=== PATIENT | female | born 1995 | race African-American/Black ===

== ENCOUNTER 2020-10-07 13:31 | Emergency (ER) | payer OTHER, SELFPAY ==
--- NOTE | ~2020-10-07 | XR_ITS ---
EXAMINATION: XR chest 1V portable INDICATION: Shortness of breath and cough TECHNIQUE: Portable AP chest at 1355 hours COMPARISON: None available FINDINGS: The lungs are free of acute opacities. There is no pleural effusion or pneumothorax. The ca rdiomediastinal silhouette is normal. The visualized bones and soft tissues are unremarkable. IMPRESSION: 1. No acute cardiopulmonary abnormality. Reviewed, dictated and finalized at location A.
[2020-10-07 13:36] VITALS: BP 103/64; PULSE 74; RESP 20; TEMP 36.3; O2SAT 100
--- NOTE | 2020-10-07 14:24 | ED.GENADULT ---
HPI - General Adult General Chief complaint: Upper Respiratory Infection Stated complaint: congestion/poor smell Time Seen by Provider: 10/07/20 13:45 Source: patient, family and RN notes reviewed Mode of arrival: ambulatory Limitations: no limitations History of Present Illness HPI narrative: Patient is a 25-year-old female who presents to emergency department for evaluation of upper respiratory symptoms for the last 4-day congestion rhinorrhea nonproductive cough sore throat inability to smell or taste also being seen with a family member with similar symptoms was not vaccinated for COVID-19 denies vomiting or diarrhea Related Data Allergies Allergy/AdvReac Type Severity Reaction Status Date / Time No Known Allergies Allergy Verified 10/07/20 13:40 Review of Systems Review of Systems: All systems reviewed & are unremarkable except as noted in HPI and below PMFSH Social History Social History (Updated 10/07/20 @ 14:25 by Avtar Corcoran PA-C) Tobacco type: e-cigarettes/vaping Gender identity (if verbalized by the patient): Female Exam Narrative: Exam Narrative: GENERAL: Well-appearing, well-nourished, and in no acute distress. HEAD: Normocephalic, atraumatic. EYES: PERRLA and EOMI. ENT: Nares clear, no rhinorrhea or epistaxis. Mucous membranes moist. CHEST: Clear to auscultation. No respiratory distress. No wheezes rales or rhonchi HEART: Regular rate and rhythm. No murmur heard. Normal peripheral pulses. EXTREMITIES: Normal range of motion. No edema. SKIN: Warm, dry, no rash. NEURO: No focal deficits. Alert and oriented x3. PSYCH: Normal mood and affect. Course Course Emergency Course: Patient evaluated for COVID-19 will be discharged with medications for her symptoms primary care for follow-up provided with reasons to return ABCs and vital signs intact and stable. Patient is afebrile nontoxic-appearing no distress and felt appropriate for outpatient reevaluation. Patient aware of following with primary care to obtain COVID-19 results also has been advised to purchase a home oximeter to follow her oxygenation Vital Signs Vital signs: Vital Signs Temperature 97.4 F L 10/07/20 13:36 Pulse Rate 74 10/07/20 13:36 Respiratory Rate 20 10/07/20 13:36 Blood Pressure 103/64 10/07/20 13:36 Pulse Oximetry 100 10/07/20 13:36 Temperature 97.4 F L 10/07/20 13:36 Pulse Rate 74 10/07/20 13:36 Respiratory Rate 20 10/07/20 13:36 Blood Pressure 103/64 10/07/20 13:36 Pulse Oximetry 100 10/07/20 13:36 Medical Decision Making MDM Narrative Medical decision making narrative: Patient with upper respiratory symptoms afebrile nontoxic-appearing no distress no pneumonia no hypoxemia felt appropriate for outpatient reevaluation Vital Signs Vital Signs: Vital Signs Temperature 97.4 F L 10/07/20 13:36 Pulse Rate 74 10/07/20 13:36 Respiratory Rate 20 10/07/20 13:36 Blood Pressure 103/64 10/07/20 13:36 Pulse Oximetry 100 10/07/20 13:36 Temperature 97.4 F L 10/07/20 13:36 Pulse Rate 74 10/07/20 13:36 Respiratory Rate 20 10/07/20 13:36 Blood Pressure 103/64 10/07/20 13:36 Pulse Oximetry 100 10/07/20 13:36 Imaging Data Radiologist's impression: ITS Impressions Chest X-Ray 10/07/20 14:18 IMPRESSION: 1. No acute cardiopulmonary abnormality. Discharge Plan Discharge Clinical Impression: Upper respiratory infection Patient Disposition: Home, Self-Care Condition: Stable Instructions: Antibiotic Form, COVID-19 (Coronavirus Disease 2019) (ED) Additional Instructions: Follow up with your primary care provider within 1-2 days to set up for reevaluation and to obtain your COVID-19 results. Go to ER for shortness of breath, difficulty breathing, chest pain, fever/chills, weakness, nauseau/vomitting, etc. or any other concerns. Stay well-hydrated Take any prescribed medications as directed. Purchase home oximeter to follow y
[2020-10-09 07:48] LABS: SARS-CoV-2 RNA PCR Positive
== END 2020-10-07 14:45 | disposition home or self-care (01) ==
PROVIDERS: Emergency Medicine Emergency Medical Services; Emergency Provider Emergency Medicine
DX: U07.1 COVID-19 (principal); J06.9 Acute upper respiratory infection, unspecified; F17.290 Nicotine dependence, other tobacco product, uncomplicated
CPT/HCPCS: 71045; 99283; C9803; U0003; U0005

== ENCOUNTER 2021-04-06 13:02 | Emergency (ER) | payer OTHER, SELFPAY ==
--- NOTE | ~2021-04-06 | XR_ITS ---
EXAMINATION: XR chest 1V portable EXAM DATE: 04/06/2021 15:26 INDICATION: Cough. TECHNIQUE: Portable AP frontal chest x-ray was obtained. Comparison is made to prior examination from 02/07/2021. FINDINGS: The lungs are clear. There are no pleural effusions. The cardiomediastinal silhouette is within normal limits. There is no pneumothorax suspected. The bones and soft tissues are unremarkab le. IMPRESSION: No acute cardiopulmonary findings. Reviewed, dictated and finalized at location G. NG ASSOCIATE
[2021-04-06 13:30] VITALS: BP 113/59; PULSE 90; RESP 16; TEMP 36.8; O2SAT 100
[2021-04-06 14:57] VITALS: BP 103/60; PULSE 62; RESP 18; TEMP 37; O2SAT 97
--- NOTE | 2021-04-06 15:44 | ECG_ITS ---
Measurements Intervals [place] Rate: 62 P: 69 RI: 160 QRS: 64 QRSD: 83 T: 54 QT: 378 QTc: 386 Interpretive Statements SINUS RHYTHM POSSIBLE LEFT ATRIAL ENLARGEMENT BASELINE ARTIFACT- I, III, AVL BORDERLINE ECG Electronically Signed On 04-06-2021 17:34:17 [employer]RE BRIDGE OPERATOR by Jake London D.O.
[2021-04-06 16:06] LABS: Basophils Absolute Auto 0.1 K/mm3 (0.0-0.1); Basophils Percent Auto 1.6 % (0.2-1.2); Eosinophils Percent Auto 0.6 % (0-4.4); Hematocrit 32.9 % (37.0-47.0); Hemoglobin 10.6 g/dL (12.0-15.0); Immature Granulocyte Absolute 0.01 K/mm3 (0.00-0.031); Immature Granulocyte Percent A 0.2 % (0-0.5); Lymphocytes Percent Auto 43.8 % (18.3-44.2); Mean Corpuscular HGB Conc 32.2 g/dl (32-36); Mean Corpuscular Volume 80.6 fl (80-100); Mean Platelet Volume 8.9 fl (7.4-10.4); Monocytes Absolute Auto 0.5 K/mm3 (0.1-0.6); Neutrophils Absolute Auto 2.3 K/mm3 (1.3-6.7); Neutrophils Percent Auto 44.8 % (45.5-73.1); Platelet Count Result 405 k/mm3 (150-375); Red Blood Count 4.08 M/mm3 (4.2-5.4); Red Cell Distribution Width 14.4 % (11.5-14.5)
[2021-04-06 16:16] LABS: Anion Gap 11 mmol/L (8-16); Blood Urea Nitrogen 12 mg/dL (7-17); Carbon Dioxide 23 mmol/L (22-30); Chloride 104 mmol/L (98-107); Estimated CRCL calculation 88 ml/min; Estimated Glomerular Filt Rate > 60; Glucose 91 mg/dL (65-110); Potassium 4.2 mmol/L (3.4-5.0); Sodium 138 mmol/L (137-145)
[2021-04-06 16:24] LABS: INR 1.1; Prothrombin Time 14.4 Seconds (11.1-14.7)
[2021-04-06 16:25] LABS: Partial Thromboplastin Time 35.1 SECONDS (22.3-36.8)
[2021-04-06 16:27] LABS: D Dimer 0.33 ug/mL (<0.48)
[2021-04-06 16:28] LABS: Troponin I < 0.012 ng/mL (0.000-0.034)
--- NOTE | 2021-04-06 16:37 | ED.URI ---
HPI - URI/Sore Throat General Chief Complaint: Upper Respiratory Infection <Karuna Paez PA-C - Last Filed: 04/06/21 17:13> Stated Complaint: bronchitis <LIGIA Perales Last Filed: 04/06/21 17:13> Time Seen by Provider: 04/06/21 15:09 <LIGIA Perales Last Filed: 04/06/21 17:13> Source: patient <LIGIA Perales Last Filed: 04/06/21 17:13> Mode of arrival: ambulatory <LIGIA Perales Last Filed: 04/06/21 17:13> Limitations: no limitations <LIGIA Perales Last Filed: 04/06/21 17:13> History of Present Illness HPI Narrative: This is a 25 year old female that presents to the ER for cold symptoms present over the last couple of days. Reports cough, congestion, and sore throat. Reports shortness of breath and chest pain. Reports she was seen by her primary and started on an antibiotic and an inhaler. She was prompted to present to the ER for her chest pain. She is not COVID or flu vaccinated. She has not taken anything for her pain. Denies fever or lower extremity edema. <Karuna Paez PA-C - Last Filed: 04/06/21 17:13> Related Data Allergies/Adverse Reactions: Allergies Allergy/AdvReac Type Severity Reaction Status Date / Time No Known Allergies Allergy Verified 10/07/20 13:40 <LIGIA Perales Last Filed: 04/06/21 17:13> Review of Systems Review of Systems: CONSTITUTIONAL: Denies fever ENT: Reports congestion, sore throat CARDIOVASCULAR: Reports chest pain. Denies edema. RESPIRATORY: Reports cough and dyspnea. <LIGIA Perales Last Filed: 04/06/21 17:13> All systems reviewed & are unremarkable except as noted in HPI and below <LIGIA Perales Last Filed: 04/06/21 17:13> [facility] Past Medical History Medical History: Medical History (Updated 04/06/21 @ 16:57 by Karuna Paez PA-C) No active medical problems <Karuna Paez PA-C - Last Filed: 04/06/21 17:13> Social History Social History: Social History (Updated 10/07/20 @ 14:25 by Avtar Corcoran PA-C) Tobacco type: e-cigarettes/vaping Gender identity (if verbalized by the patient): Female <Karuna Paez PA-C - Last Filed: 04/06/21 17:13> Exam Narrative: GENERAL: Well-appearing, well-nourished, and in no acute distress. HEAD: Normocephalic, atraumatic. EYES: EOMI. ENT: Nares clear, no rhinorrhea or epistaxis. Mucous membranes moist. Oropharynx without tonsillar hypertrophy exudate or other lesions. Bilateral TMs pearly narvaez non-bulging NECK: Supple. No adenopathy or masses. CHEST: Clear to auscultation. No respiratory distress. No wheezes rales or rhonchi HEART: Regular rate and rhythm. No murmur heard. Normal peripheral pulses. EXTREMITIES: Normal range of motion. No edema. SKIN: Warm, dry, no rash. NEURO: No focal deficits. Alert and oriented x3. PSYCH: Normal mood and affect <Karuna Paez PA-C - Last Filed: 04/06/21 17:13> Course SALESPERSON BOOKS/PA Physician Supervision For this patient encounter, I reviewed the SALESPERSON BOOKS or PA documentation, treatment plan, and medical decision making <Adriel Mclain MD - Last Filed: 04/06/21 23:25> Vital Signs Vital signs: Vital Signs Temperature 98.3 F 04/06/21 13:30 Pulse Rate 90 04/06/21 13:30 Respiratory Rate 16 04/06/21 13:30 Blood Pressure 113/59 L 04/06/21 13:30 Pulse Oximetry 100 04/06/21 13:30 Temperature 98.6 F 04/06/21 14:57 Pulse Rate 80 04/06/21 18:06 Respiratory Rate 17 04/06/21 18:06 Blood Pressure 132/84 04/06/21 18:06 Pulse Oximetry 99 04/06/21 18:06 <Karuna Paez PA-C - Last Filed: 04/06/21 17:13> Vital Signs Temperature 98.3 F 04/06/21 13:30 Pulse Rate 90 04/06/21 13:30 Respiratory Rate 16 04/06/21 13:30 Blood Pressure 113/59 L 04/06/21 13:30 Pulse Oximetry 100 04/06/21 13:30 Temperature 98.6 F 04/06/21 14:57 Pulse Rate 80 04/06/21 18:06 Respiratory Rate 17 04/06/21 18:0
[2021-04-06 16:47] LABS: SARS-CoV-2 RNA PCR Negative
[2021-04-06] MEDS: KETOROLAC 30 MG/ML VIAL (*BKC) IV PUSH (17:10)
[2021-04-06 18:06] VITALS: BP 132/84; PULSE 80; RESP 17; O2SAT 99
== END 2021-04-06 18:07 | disposition home or self-care (01) ==
PROVIDERS: Physician Assistant; Emergency Provider Emergency Medicine
DX: J06.9 Acute upper respiratory infection, unspecified (principal); Z20.822 Contact with and (suspected) exposure to COVID-19; F17.290 Nicotine dependence, other tobacco product, uncomplicated
CPT/HCPCS: 36415; 71045; 80048; 84484; 85025; 85380; 85610; 85730; 87804; 93005; 96374; 99284; C9803; J1885; U0003; U0005

== ENCOUNTER 2022-04-14 15:11 | Emergency (ER) | payer OTHER, SELFPAY ==
--- NOTE | ~2022-04-14 | CT_ITS ---
Non-contrast CT scan of the Abdomen and Pelvis Clinical indication: Left flank pain Technique: 5 mm axial scans were obtained through the abdomen and pelvis without intravenous or oral contrast. Dose reduction technique was used on this scan by utilizing automated exposure control and iterative reconstruction technique. The dose-length product (DLP) was 174.42 mGy-cm. Findings: Images through the lung bases reveal no abnormalities. There is no evidence of renal or ureteral calculi. The kidneys and the ureters are nondilated. The liver, spleen, pancreas, gallbladder, and adrenals appear normal. There is no aortic aneurysm. There is no evidence of bowel obstruction. No evidence to suggest appendicitis. Images through the pelvis were performed. There is no evidence of ascites or lymphadenopathy. Urinary bladder unremarkable. No adnexal mass evident. Impression: No significant abnormality seen. Reviewed, dictated and finalized at [facility]. ICAL NURSING INTERN Impression: No significant abnormality seen.
--- NOTE | ~2022-04-14 | US_ITS ---
EXAMINATION: US pelvic complete w TV DATE: 04/14/2022 16:50 INDICATION: Left pelvic pain. TECHNIQUE: Multiple transabdominal and transvaginal sonographic images of the pelvis were obtained. COMPARISON: None. FINDINGS: TRANSABDOMINAL ULTRASOUND: The uterus measures 7.2 x 3.8 x 4.7 cm. There is physiologic free fluid in the pelvis. TRANSVAGINAL ULTRASOUND: The endometrial complex measures 8 mm in thickness. The right ovary measures 2.7 x 1.5 x 2.0 cm. The left ovary measures 1.9 x 0.8 cm. There is normal vascular flow in the ovaries. IMPRESSION: 1. Normal pelvis. Reviewed, dictated and finalized at location A. TS ASSISTANT IMPRESSION: 1. Normal pelvis.
[2022-04-14 15:39] VITALS: BP 117/63; PULSE 84; RESP 14; TEMP 36.9; O2SAT 100
[2022-04-14 21:13] VITALS: BP 137/66; PULSE 99; RESP 18; O2SAT 100
--- NOTE | 2022-04-14 23:39 | ED.ABDPAIN ---
HPI - Abdominal Pain General Chief Complaint: Abdominal Pain <Alfie Hernandez MD - Last Filed: 04/15/22 00:02> Stated Complaint: ovary pain sent for ultrasound <Alfie Hernandez MD - Last Filed: 04/15/22 00:02> Time Seen by Provider: 04/14/22 22:11 <Alfie Hernandez MD - Last Filed: 04/15/22 00:02> History of Present Illness HPI narrative: This is a 26-year-old female who denies significant past medical history, referred to the emergency department from urgent care with concern for ovarian torsion. The patient states she has had 8/10 left flank pain and left lower quadrant pain for the past 2 weeks, worsening in the past day. Is intermittently associated with nausea but no vomiting. <Alfie Hernandez MD - Last Filed: 04/15/22 00:02> Related Data Allergies/Adverse Reactions: Allergies Allergy/AdvReac Type Severity Reaction Status Date / Time No Known Allergies Allergy Verified 10/07/20 13:40 <Alfie Hernandez MD - Last Filed: 04/15/22 00:02> Review of Systems Review of Systems: CONSTITUTIONAL: Denies fever, chills, or sweats. EYES: Denies visual changes, redness, or discharge. ENT: Denies rhinorrhea, congestion, sore throat, or otalgia. CARDIOVASCULAR: Denies chest pain, palpitations, or edema. RESPIRATORY: Denies cough or dyspnea. GASTROINTESTINAL: Left lower quadrant abdominal pain, left flank pain, nausea denies vomiting, or diarrhea. GENITOURINARY: Denies dysuria or hematuria. SKIN: Denies rash or itching. MUSCULOSKELETAL: Denies back pain, joint pain, or myalgia. NEUROLOGIC: Denies headache, numbness, dizziness, or weakness. PSYCHIATRIC: Denies anxiety or depression. <Alfie Hernandez MD - Last Filed: 04/15/22 00:02> [facility] Past Medical History Medical History: Medical History No active medical problems <Alfie Hernandez MD - Last Filed: 04/15/22 00:02> Social History Social History: Social History Tobacco type: e-cigarettes/vaping Gender identity (if verbalized by the patient): Female <Alfie Hernandez MD - Last Filed: 04/15/22 00:02> Exam Narrative: GENERAL: Well-developed, well-nourished, appears uncomfortable HEAD: Normocephalic, atraumatic. EYES: PERRLA and EOMI. CHEST: Clear to auscultation. No respiratory distress. No wheezes rales or rhonchi HEART: Regular rate and rhythm. No murmur heard. Normal peripheral pulses. ABDOMEN: Soft, tender to palpation in the LLQ without rebound, nondistended, normal active bowel sounds. Left CVA tenderness to palpation. EXTREMITIES: Normal range of motion. No edema. SKIN: Warm, dry, no rash. NEURO: No focal deficits. Alert and oriented x3. PSYCH: Normal mood and affect. <Alfie Hernandez MD - Last Filed: 04/15/22 00:02> Course Course Emergency Course: 00:00 - Patient signed out to overnight ED physician, Dr. Trent pending imaging and UA. <Alfie Hernandez MD - Last Filed: 04/15/22 00:02> Vital Signs Vital signs: Vital Signs Temperature 36.9 C 04/14/22 15:39 Pulse Rate 84 04/14/22 15:39 Respiratory Rate 14 04/14/22 15:39 Blood Pressure 117/63 04/14/22 15:39 Pulse Oximetry 100 04/14/22 15:39 Oxygen Delivery Room Air 04/14/22 15:39 Temperature 36.9 C 04/14/22 15:39 Pulse Rate 56 L 04/15/22 00:09 Respiratory Rate 14 04/15/22 00:09 Blood Pressure 131/75 04/15/22 00:09 Pulse Oximetry 100 04/15/22 00:09 Oxygen Delivery Room Air 04/14/22 15:39 <Alfie Hernandez MD - Last Filed: 04/15/22 00:02> Vital Signs Temperature 36.9 C 04/14/22 15:39 Pulse Rate 84 04/14/22 15:39 Respiratory Rate 14 04/14/22 15:39 Blood Pressure 117/63 04/14/22 15:39 Pulse Oximetry 100 04/14/22 15:39 Oxygen Delivery Room Air 04/14/22 15:39 Temperature 36.9 C 04/14/22 15:39 Pulse Rate 56 L 04/15/22 00:09 Re
[2022-04-15 00:09] VITALS: BP 131/75; PULSE 56; RESP 14; O2SAT 100
[2022-04-15 00:42] LABS: Add Urine Microscopic? YES; Appearance Urine Clear (Clear); Bilirubin Urine Negative (Negative); Blood Urine 2+ (Negative); Color Urine Yellow (Yellow); Glucose Urine UA Negative (Negative); Ketones Urine 1+ mg/dL (Negative); Leukocyte Esterase Ur Negative LEU/UL (Negative); Nitrate Urine Negative (Negative); Protein Urine Negative (Negative); Urobilinogen Urine 0.2 mg/dL (<2.0)
[2022-04-15 00:51] LABS: Mucus Urine Moderate /lpf; Squamous Epithelial Cell Urine Rare /hpf (Few); WBC Urine 0-3 /hpf
== END 2022-04-15 01:21 | disposition home or self-care (01) ==
PROVIDERS: Preventive Medicine Aerospace Medicine; Emergency Provider Emergency Medicine; PCP Family Medicine
DX: R10.32 Left lower quadrant pain (principal); F17.290 Nicotine dependence, other tobacco product, uncomplicated
CPT/HCPCS: 74176; 76830; 76856; 81001; 81025; 99284; A9270

== ENCOUNTER 2023-05-09 08:30 | Emergency (ER) | payer OTHER, SELFPAY ==
--- NOTE | ~2023-05-09 | CT_ITS ---
EXAMINATION: CT thoracic lumbar wo con DATE: 05/09/2023 13:56 INDICATION: Fall . TECHNIQUE: Computed tomography (CT) of the thoracic and lumbar spine was performed without intravenou s contrast. Automated exposure control and iterative reconstruction technique were employed. The dose -length product was 333.75 mGy-cm. COMPARISON: CT abdomen pelvis 04/14/2022 FINDINGS: THORACIC SPINE: Vertebral body alignment intact. Vertebral body heights preserved. No disc space narrowing. No trauma tic malalignment or fracture. Visualized lung parenchyma is clear. Mild spinal asymmetry. Suggestion of H shaped superior and inferior endplate configuration. LUMBAR SPINE: 5 nonrib-bearing lumbar-type vertebral bodies. Pedicles intact. Normal vertebral body alignment. Vert ebral body heights preserved. Disc spaces maintained. Normal facets and posterior elements. Suggestio n of H shaped superior and inferior endplate configuration. IMPRESSION: No acute fracture or traumatic malalignment detected in the thoracic or lumbar spine. Reviewed, dictated and finalized at location K. DESIGNER
--- NOTE | ~2023-05-09 | XR_ITS ---
EXAMINATION: XR sacrum coccyx min 2V DATE: 05/09/2023 12:05 INDICATION: Tailbone pain post fall TECHNIQUE: Frontal, angled frontal and lateral views of the sacrum and coccyx were obtained. COMPARISON: CT dated 04/14/2022 FINDINGS: Bone alignment is normal. Sacral arches are intact. No fracture. Joint spaces are normal. Visualized lower lumbar disc spaces are normal. Phlebolith in the left hemipelvis. IMPRESSION: 1. No osseous abnormality. Reviewed, dictated and finalized at location A. RAL MANAGER IMPRESSION: 1. No osseous abnormality.
[2023-05-09 08:32] VITALS: BP 121/61; PULSE 74; RESP 18; TEMP 36.4; O2SAT 100
--- NOTE | 2023-05-09 11:52 | ED.FALL ---
HPI - Fall General Chief Complaint: Fall Stated Complaint: fall/tailbone pain Time Seen by Provider: 05/09/23 11:07 History of Present Illness HPI Narrative: Patient is a 28-year-old female who presents to the emergency department this morning status post a slip and. Patient states that she was walking outside and slipped on some ice landing on her coccyx. Patient is currently complaining of tailbone pain and lower back pain. Patient has been ambulatory since the fall but is too scared to walk secondary to pain. Denies any neurological symptoms including lower extremity weakness, any bowel or bladder incontinence, any numbness or tingling along the bilateral lower extremity. Patient denies falling backwards and denies hitting her head. States that she remembers the full event. She is currently denying any additional symptoms including chest pain, shortness of breath, nausea, vomiting, or abdominal pain. There are no other modifying, alleviating, or precipitating factors at this time. The remainder of the history present illness and review of systems negative unless stated otherwise in HPI. Related Data Allergies Allergy/AdvReac Type Severity Reaction Status Date / Time No Known Allergies Allergy Verified 05/09/23 08:36 Review of Systems Review of Systems: All systems are reviewed and are negative unless stated otherwise in the HPI. [facility] Past Medical History Medical History No active medical problems Social History Social History Tobacco type: e-cigarettes/vaping Gender identity (if verbalized by the patient): Female Comments Denies any significant past medical or surgical history, denies any significant family history. Patient admits to vaping, denies any illicit drug use or alcohol abuse. Exam Narrative: General: Alert, awake, afebrile, in no acute distress. HEENT: PERRL, no rhinorrhea, no post nasal drip, oropharynx clear. Neck: Trachea midline, no JVD, no lymphadenopathy. Cardiovascular: Regular rate and rhythm, no murmurs, rubs or gallops, no peripheral edema. Respiratory: Clear to auscultation bilaterally, no tachypnea, no wheezing, no rhonchi, no rubs, no respiratory distress. Abdomen: Soft, nontender, nondistended, no rebound, no guarding, no peritoneal signs. Musculoskeletal: No joint swelling or deformity, normal muscle tone. Back: No midline cervical spine tenderness to palpation, midline tenderness to palpation over the lower thoracic and lumbar spine extending down to the coccyx. No step-offs or deformities. Skin: No rashes or petechia, no signs of infection. Psychiatric: Alert and oriented, normal behavior and judgment for situation. Neurological: Alert and oriented to person, place, and time. Follows all commands. No focal deficits, speech is clear and fluent. Course Vital Signs Vital signs: Vital Signs Temperature 97.6 F 05/09/23 08:32 Pulse Rate 74 05/09/23 08:32 Respiratory Rate 18 05/09/23 08:32 Blood Pressure 121/61 05/09/23 08:32 Pulse Oximetry 100 05/09/23 08:32 Oxygen Delivery Room Air 05/09/23 08:32 Temperature 97.6 F 05/09/23 08:32 Pulse Rate 74 05/09/23 08:32 Respiratory Rate 18 05/09/23 08:32 Blood Pressure 121/61 05/09/23 08:32 Pulse Oximetry 100 05/09/23 08:32 Oxygen Delivery Room Air 05/09/23 08:32 MDM - Fall MDM Narrative Medical decision making narrative: The patient was evaluated by myself in the emergency department. History is obtained from patient who is an independent historian and physical exam was performed. External medical records were reviewed at this time. Patient was administered a Lidoderm patch which was placed along her lumbar spine for pain. Imaging studies obtained included sacrum x-ray and CT of the thoracic and lumbar spine without IV contrast which was independently interpreted by me reve
[2023-05-09] MEDS: LIDOCAINE 5% PATCH 1 PATCH TRANSDERM (14:48)
[2023-05-09 14:55] VITALS: BP 106/68; PULSE 76; RESP 16; TEMP 36.6; O2SAT 100
== END 2023-05-09 14:57 | disposition home or self-care (01) ==
PROVIDERS: Emergency Provider Emergency Medicine; PCP Family Medicine
DX: S39.92XA Unspecified injury of lower back, initial encounter (principal); F17.290 Nicotine dependence, other tobacco product, uncomplicated; W00.0XXA Fall on same level due to ice and snow, initial encounter
CPT/HCPCS: 72128; 72131; 72220; 81025; 99284; A9270